=== PATIENT | female | born 1990 | race Caucasian/White ===

== ENCOUNTER 2016-02-28 16:28 | Emergency (ER) | payer MEDICAID, OTHER ==
[2016-02-28 16:35] VITALS: RESP 18; O2SAT 98
[2016-02-28] MEDS ORDERED: NS 1,000 ML IV ONE (16:36)
--- NOTE | 2016-02-28 16:39 | EDPHY ---
H & P Stated Complaint: 6 wks pgn, intermittent bleeding since yesterday, ~1 tbsp today, cramps Time Seen by Provider: 02/28/16 16:36 - Personal History LMP (Females 10-55): Over 28 Days Ago Current Tetanus/Diphtheria Vaccine: Unsure Current Tetanus Diphtheria and Acellular Pertussis (TDAP): Unsure - Medical/Surgical History Hx Asthma: No Hx Chronic Respiratory Disease: No Hx Diabetes: No Hx Cardiac Disease: No Hx Renal Disease: No Hx Cirrhosis: No Hx Alcoholism: No Hx HIV/AIDS: No Hx Splenectomy or Spleen Trauma: No Other PMH: denies - Social History Smoking Status: Former smoker Constitutional: Initial Vital Signs Temperature (C) 36.7 C 02/28/16 16:32 Heart Rate 109 H 02/28/16 16:32 Respiratory Rate 18 02/28/16 16:32 Blood Pressure 139/87 H 02/28/16 16:32 O2 Sat (%) 98 02/28/16 16:32 O2 Delivery Mode Room Air Allergies/Adverse Reactions: gluten Allergy (Verified 02/28/16 16:31) Home Medications: Medication Instructions Recorded NK [No Known Home Meds] 02/28/16 Medical Decision Making ED Course/Re-evaluation: CHIEF COMPLAINT: Vaginal bleeding in early HISTORY OF PRESENT ILLNESS: The patient is a 25 y/o female who believes she is 6 weeks complaining of mild vaginal bleeding. Her first was normal with no complications. She says she is Rh- and received RhoGAM during her first although her child was also Rh-. She diagnosed her with a home kit after missing her period and has not had an ultrasound yet. She noticed a small amount of bleeding starting yesterday that has continued today. She denies pain or other symptoms. She denies other pertinent medical history. REVIEW OF SYSTEMS: A 10 point review of systems was performed and is negative with the exception of the elements mentioned in the history of present illness. PHYSICAL EXAM: HR, BP, O2 Sat, RR. Temp noted General Appearance: Alert, well hydrated, appropriate, and non-toxic appearing. Head: Atraumatic without scalp tenderness or obvious injury Eyes: Pupils equal, round, reactive to light and accommodation, EOMI, no trauma , no injection. Ears: Clear bilaterally, no perforation, normal landmarks Nose: Atraumatic, no rhinorrhea, clear. Throat: There is no erythema or exudates, no lesions, normal tonsils, mucus membranes moist. Neck: Supple, 2+ carotid upstroke, nontender, no lymphadenopathy. Respiratory: No retractions, no distress, no wheezes, and no accessory muscle use. Lungs are clear to auscultation bilaterally. Cardiovascular: Regular rate and rhythm, no murmurs, rubs, or gallops. Bilateral carotid, radial, dorsalis pedis, and posterior tibial pulses intact. Good capillary refill all extremities. Gastrointestinal: Abdomen is soft, nontender, non-distended, no masses, no rebound, no guarding, no peritoneal signs. Musculoskeletal: Normal active ROM of all extremities, atraumatic. Neurological: Alert, appropriate, and interactive. The patient has normal DTRs and non-focal cranial nerves, motor, sensory, and cerebellar exam. Skin: No rashes, good turgor, no nodules on palpation. Past medical history: Past surgical history: Denies Family history: Noncontributory Social history: Has one child at home DIAGNOSTICS/PROCEDURES/CRITICAL CARE TIME: Study: Ultrasound of the: Uterus Indication: with vaginal bleeding Results: US scan of the uterus was obtained. The results of the study are 7- week IUP, os closed. The study was read by the radiologist, Dr. Chua. I viewed the images myself on the PACS system. DIFFERENTIAL DIAGNOSIS: The differential diagnosis for the patient's vaginal bleeding included but was not limited to threatened miscarriage, ectopic , menses, miscarriage, and dysfunctional uterine bleeding. MEDICAL DECISION MAKING: This is a healthy 25 y/o female presenting with a small quantity of vaginal bleeding and suspected 5-6 week . She has no other complaints. Exam is unremarkable. Plan for obstetrics ultrasound. She is Rh- and will receive RhoGAM. US shows 7-week IUP per Dr. Chua. Patient will be discharged with threatened miscarriage instructions and referral to OBGYN. Return precautions given. She is comfortable with this plan. - Data Points Laboratory Results: Laboratory Results 02/28/16 17:05 02/28/16 17:05 02/28/16 17:05 WBC 13.14 H 10^3/uL (3.80-9.50) RBC 5.19 10^6/uL (4.18-5.33) Hgb 15.3 g/dL (12.6-16.3) Hct 43.4 % (38.0-47.0) MCV 83.6 fL (81.5-99.8) MCH 29.5 pg (27.9-34.1) MCHC 35.3 g/dL (32.4-36.7) RDW 12.1 % (11.5-15.2) Plt Count 325 10^3/uL (150-400) MPV 8.8 fL (8.7-11.7) Neut % (Auto) 74.5 H % (39.3-74.2) Lymph % (Auto) 16.1 % (15.0-45.0) [place] % (Auto) 8.1 % (4.5-13.0) Eos % (Auto) 0.3 L % (0.6-7.6) Baso % (Auto) 0.5 % (0.3-1.7) Nucleat RBC Rel Count 0.0 % (0.0-0.2) Absolute Neuts (auto) 9.78 H 10^3/uL (1.70-6.50) Absolute Lymphs (auto) 2.12 10^3/uL (1.00-3.00) Absolute Monos (auto) 1.07 H 10^3/uL (0.30-0.80) Absolute Eos (auto) 0.04 10^3/uL (0.03-0.40) Absolute Basos (auto) 0.07 10^3/uL (0.02-0.10) Absolute Nucleated RBC 0.00 10^3/uL (0-0.01) Immature Gran % 0.5 % (0.0-1.1) Immature Gran # 0.06 10^3/uL (0.00-0.10) Sodium 141 mEq/L (134-144) Potassium 3.8 mEq/L (3.5-5.2) Chloride 106 mEq/L (97-110) Carbon Dioxide 20 L mEq/l (22-31) Anion Gap 15 mEq/L (8-16) BUN 6 L mg/dL (7-23) Creatinine 0.6 mg/dL (0.6-1.0) Estimated GFR > 60 Glucose 85 mg/dL (70-100) Calcium 9.7 mg/dL (8.5-10.4) Beta HCG, Quant 6565.10 H mIU/mL (0-4.83) Patient ABO/Rh AB NEGATIVE Antibody Screen NEGATIVE Medications Given: Discontinued Medications Sodium Chloride (Ns) 1,000 mls @ 0 mls/hr IV ONCE ONE PRN Reason: Wide Open Stop: 02/28/16 16:37 Last Admin: 02/28/16 17:09 Dose: 1,000 mls Departure - Departure Disposition: Home, Routine, Self-Care Clinical Impression: Threatened miscarriage in early Instructions: Threatened Miscarriage (ED) Additional Instructions: Follow up with your obgyn or Dr. Solares on Tuesday. Return to the ED for severe bleeding or pain, fainting, or other worsening of condition. Referrals: Agnes Solares MD [Medical Doctor] - As per Instructions Report Scribed for: Osiel Lopez Report Scribed by: Salima Miller Date of Report: 02/28/16 Time of Report: 17:38
[2016-02-28 17:10] LABS: % IMMATURE GRANULYOCYTES 0.5 % (0.0-1.1); ABSOLUTE IMMATURE GRANULOCYTES 0.06 10^3/uL (0.00-0.10); ADD DIFF? NO; ADD MORPH? NO; ADD SCAN? NO; ATYPICAL LYMPHOCYTE FLAG 40 (0-99); FRAGMENT RBC FLAG 0 (0-99); HEMATOCRIT 43.4 % (38.0-47.0); HEMOGLOBIN 15.3 g/dL (12.6-16.3); LEFT SHIFT FLG 0 (0-99); LIPEMIA HEMOLYSIS FLAG 90 (0-99); MEAN CELL HEMOGLOBIN 29.5 pg (27.9-34.1); MEAN CELL HEMOGLOBIN CONCENTR. 35.3 g/dL (32.4-36.7); MEAN CELL VOLUME 83.6 fL (81.5-99.8); MEAN PLATELET VOLUME 8.8 fL (8.7-11.7); PLATELET CLUMPS FLAG 0 (0-99); PLATELET COUNT 325 10^3/uL (150-400); RED BLOOD CELL COUNT 5.19 10^6/uL (4.18-5.33); RED CELL DISTRIBUTION WIDTH 12.1 % (11.5-15.2)
[2016-02-28 17:23] LABS: ANION GAP 15 mEq/L (8-16); CALCIUM 9.7 mg/dL (8.5-10.4); CARBON DIOXIDE 20 mEq/l (22-31); CHLORIDE 106 mEq/L (97-110); CREATININE 0.6 mg/dL (0.6-1.0); GLOMERULAR FILTRATION RATE > 60; GLUCOSE 85 mg/dL (70-100); POTASSIUM 3.8 mEq/L (3.5-5.2); SODIUM 141 mEq/L (134-144)
--- NOTE | 2016-02-28 18:15 | US ---
Obstetrical Ultrasound 1st Trimester, <14 weeks 1709 hours Clinical Indications: Early . Pelvic pain and vaginal bleeding. Evaluate dates and c heck viability. Findings: LMP January 09, 2016 with gestational age by LMP 7 weeks 1.0 day and EDC by LMP of October 15, 2016. Gestational age by ultrasound is 7 weeks with estimated date of delivery by ultrasound of October 16, 2016. The uterus has a normal contour and measures 9.2 x 5.4 x 5.7 cm longitudinal, AP, and transverse dime nsions. A single viable intrauterine fetus is identified. Rumsey-rump length: 8.8 mm corresponding to gestational age of 7 weeks. Yolk sac: Normal in appearance measuring 2.9 mm heart motion: Documented with heart rate of 134 bpm. Subchorionic hemorrhage: Not visualized Maternal ovaries: Corpus lutein cyst on the left measuring about 1.3 cm. The left ovary in total jovi ures 3.5 x 2 x 2.4 cm. The right ovary measures 1.5 x 2.6 x 1.7 cm. There is normal color flow Dopple r pattern each ovary. No significant free fluid within the pelvis. Impression: 1. Single viable intrauterine gestation with EGA 7 weeks. 2. Estimated date of delivery is October 16, 2016 by ultrasound and October 15, 2016 by LMP. Size consi stent with dates. 3. Consider follow up anatomy scan. 4. Corpus luteum cyst on the left. These findings were discussed by telephone with Dr. Osiel Lopez at 1810 hrs.
[2016-02-28 19:06] VITALS: BP 108/75; PULSE 87; TEMP 98.2
== END 2016-02-28 19:07 | disposition home or self-care (01) ==
DX: O20.0 Threatened abortion (principal); Z3A.01 Less than 8 weeks gestation of pregnancy; Z87.891 Personal history of nicotine dependence

== ENCOUNTER → 2016-03-02 | Outpatient (CLI) | payer OTHER ==
--- NOTE | 2016-03-02 16:11 | US ---
First Trimester Obstetric Ultrasound March 02, 2016 Indication: Pelvic cramping and pain. Intrauterine on ultrasound from three days prior. Comparison: First trimester obstetric ultrasound dated February 28, 2016. Findings: The previously documented intrauterine gestation is no longer present. The endometrial ca vity now contains avascular amorphous soft tissue consistent with residual blood clot. No residual v ascularized material. The residual blood in the endometrial cavity measures 1.4 cm in thickness. Th e myometrium is homogeneous and normal. The ovaries are normal size and have appropriate blood flow. A benign 1.5-cm corpus luteum cyst resi allyson in the left ovary. No adnexal mass or free fluid. The right ovary measures 2.8 x 2.8 x 1.2 cm. The left ovary measures 3.0 x 1.9 x 1.7 cm. Impression: 1. Spontaneous miscarriage, with residual blood products in the endometrial cavity. No residual vas cularized products. 2. No free fluid or evidence of heterotopic . Comment: The results were discussed with Nathanael Cowan CNM, at 3:50 p.m. on March 02, 2016.
== END ==
LOC: FIMAGING 15:04
PROVIDERS: ATTEND Advanced Practice Midwife
DX: O03.9 Complete or unspecified spontaneous abortion without complication (principal)